=== PATIENT | female | born 1990 | race Caucasian/White ===

== ENCOUNTER 2020-08-14 22:06 | Inpatient (IN) | payer BC ==
[2020-08-14] MEDS ORDERED: Morphine 4 MG/ML VIAL ONE (22:28)
[2020-08-14] MEDS ORDERED: Ondansetron PF 4 MG/2 ML Vial ONE (22:29)
[2020-08-14 22:44] LABS: #Eosinphils 0.1 10x3/uL (0.0-0.5); #Monocytes 1.2 10x3/uL (0.0-1.1); #Neutrophils 10.8 10x3/uL (1.5-8.4); %Basophils 0.3 % (0.0-2.0); %Eosinophils 0.6 % (0.0-6.0); %Lymphocytes 15.6 % (18.0-47.0); %Monocytes 8.1 % (0.0-10.0); %Neutrophils 74.9 % (40.0-75.0); Hemoglobin 12.5 g/dL (12.0-15.5); Mean Corpuscular HGB CONC 33.2 g/dL (32.0-36.0); Mean Corpuscular Hemoglobin 28.2 pg (27.0-33.0); Mean Corpuscular Volume 84.9 fl (81.6-98.3); Mean Platelet Volume 8.8 fl (7.4-10.4); Platelet Count 417 10x3/uL (150-450); RBC Distribution Width 12.3 % (11.5-14.5); Red Blood Cell (RBC) Count 4.43 10x6/uL (3.90-5.03); White Blood Cell (WBC) Count 14.4 10x3/uL (3.5-10.5)
[2020-08-14 22:49] LABS: BHCG - Serum Negative (NEGATIVE); Pregs Control Background? CLEAR/WHITE (CLR/WHITE); Pregs Control Bar Appear? YES (CONTROL BAR)
[2020-08-14 22:56] LABS: ALT (SGPT) 17 U/L (8-55); AST (SGOT) 12 U/L (5-34); Albumin 3.9 g/dL (3.5-5.0); Alkaline Phosphatase 103 U/L (40-110); Anion Gap 14 mmol/L (10-20); BUN (Urea Nitrogen) 11 mg/dL (7.0-18.7); Bilirubin, Total 0.5 mg/dL (0.2-1.2); Calc. Creatinine Clearance 0 mL/min (70-130); Calcium 8.9 mg/dL (7.8-10.44); Carbon Dioxide 23 mmol/L (22-29); Chloride 104 mmol/L (98-107); Globulin 4.5 g/dL (2.4-3.5); Glucose 114 mg/dL (70-105); Lipase 42 U/L (8-78); Potassium 3.8 mmol/L (3.5-5.1); Protein, Total 8.4 g/dL (6.0-8.3); Sodium 137 mmol/L (136-145)
[2020-08-15] MEDS ORDERED: Piperacillin/Tazobactam 4.5 GM VIAL ONE (00:12)
[2020-08-15 01:43] VITALS: BMI 34.3
[2020-08-15] MEDS ORDERED: Ondansetron ODT 4 MG TAB SL PRN (02:15)
[2020-08-15] MEDS ORDERED: Ondansetron PF 4 MG/2 ML Vial IVP PRN ×2 (02:15→15:23)
[2020-08-15] MEDS: Lactated Ringer's 1,000 ML IV SCH ×3 (02:33→17:52)
[2020-08-15] MEDS: Piperacillin/Tazobactam 3.375 GM in Sodium Chloride 0.9% 100 ML IVPB SCH ×3 (04:57→21:21)
[2020-08-15] MEDS: Morphine 4 MG/ML VIAL SLOW IVP SCH ×2 (05:29→10:41)
[2020-08-15 08:41] LABS: SARS-CoV-2 PCR by NAA Not Detected (NotDetected)
[2020-08-15] MEDS ORDERED: Midazolam HCl 2 mg/2 ml Vial ONE ×2 (12:54→13:18)
[2020-08-15] MEDS ORDERED: Bupivacaine PF 0.5% 30 ML VIAL ONE (12:56)
[2020-08-15] MEDS ORDERED: PROPOFOL 20 ML ONE (13:18)
[2020-08-15] MEDS ORDERED: Fentanyl 100 MCG/2 ML VIAL ONE (13:18)
[2020-08-15] MEDS ORDERED: Ketorolac Tromethamine 30 MG/ML VIAL ONE (13:18)
[2020-08-15] MEDS ORDERED: Rocuronium Bromide 10 MG/ML (10ML VIAL) ONE (13:21)
[2020-08-15] MEDS ORDERED: Dexamethasone 4 mg/ml Vial ONE (13:21)
[2020-08-15] MEDS ORDERED: Glycopyrrolate 0.2 MG/ML 5 ML SYRINGE ONE (13:21)
[2020-08-15] MEDS ORDERED: Ondansetron PF 4 MG/2 ML Vial ONE (13:21)
[2020-08-15] MEDS ORDERED: Lidocaine 1% PF 5 ML VIAL ONE (13:21)
[2020-08-15] MEDS ORDERED: Morphine 1 ML ONE (15:14)
[2020-08-15] MEDS ORDERED: Calcium Carbonate 500 MG ChewTAB PO PRN (15:23)
[2020-08-15] MEDS ORDERED: hydrALAZINE 20 MG/ML VIAL SLOW IVP PRN (15:23)
[2020-08-15] MEDS ORDERED: Acetaminophen 325 MG TAB PO PRN (15:23)
[2020-08-15] MEDS ORDERED: Mag-Al Plus 1200 MG/1200 MG/120 MG/30 ML UDCUP PO PRN (15:29)
[2020-08-15] MEDS ORDERED: Promethazine HCl 25 MG/ML VIAL ONE (15:45)
[2020-08-15] MEDS ORDERED: Morphine 2 MG/ML VIAL ONE (15:59)
[2020-08-15] MEDS ORDERED: Piperacillin/Tazobactam 3.375 GM in Sodium Chloride 0.9% 100 ML IVPB SCH ×2 (16:00→17:00)
[2020-08-15] MEDS ORDERED: HYDROcodone/Acetaminophen 5/325 mg Tablet PO PRN ×2 (17:44→17:45)
[2020-08-15] MEDS ORDERED: Morphine 2 MG/ML VIAL SLOW IVP PRN (17:46)
[2020-08-15] MEDS ORDERED: Morphine 4 MG/ML VIAL SLOW IVP PRN (17:46)
[2020-08-15] MEDS: Ketorolac Tromethamine 30 MG/ML VIAL IVP SCH (17:51)
[2020-08-15] MEDS: Famotidine/PF 20 mg/2ml Vial SLOW IVP SCH (21:21)
[2020-08-16] MEDS: Ketorolac Tromethamine 30 MG/ML VIAL IVP SCH ×3 (01:18→12:47)
[2020-08-16] MEDS: Lactated Ringer's 1,000 ML IV SCH ×2 (01:22→09:29)
[2020-08-16 04:58] LABS: #Monocytes 0.7 10x3/uL (0.0-1.1); %Basophils 0.1 % (0.0-2.0); %Lymphocytes 12.6 % (18.0-47.0); %Monocytes 6.3 % (0.0-10.0); %Neutrophils 80.4 % (40.0-75.0); Hemoglobin 11.4 g/dL (12.0-15.5); Mean Corpuscular Hemoglobin 28.2 pg (27.0-33.0); Mean Corpuscular Volume 85.4 fl (81.6-98.3); Mean Platelet Volume 8.8 fl (7.4-10.4); Platelet Count 397 10x3/uL (150-450); RBC Distribution Width 12.1 % (11.5-14.5); Red Blood Cell (RBC) Count 4.04 10x6/uL (3.90-5.03); White Blood Cell (WBC) Count 11.2 10x3/uL (3.5-10.5)
[2020-08-16] MEDS: Piperacillin/Tazobactam 3.375 GM in Sodium Chloride 0.9% 100 ML IVPB SCH (05:48)
[2020-08-16] MEDS: Famotidine/PF 20 mg/2ml Vial SLOW IVP SCH (09:29)
[2020-08-16 12:22] VITALS: BP 116/74; TEMP 97.8
== END 2020-08-16 13:40 | disposition home or self-care (01) | DRG 419 ==
LOC: CSHERS 22:06 → CSHTELE 08-15 01:36 → OBSVTOIN 08-15 15:24
PROVIDERS: ADMIT Surgery; ATTEND Surgery
PROC: 0FT44ZZ Resection of Gallbladder, Percutaneous Endoscopic Approach (ICD-10-PCS; principal; 2020-08-15)
DX: K81.0 Acute cholecystitis (principal); Z86.16 Personal history of COVID-19
CPT/HCPCS: 36415; 76705; 80053; 83690; 84703; 85025; 87635; 88304; 96365; 96375; G0378; J0690; J1100; J1885; J2250; J2270; J2405; J2543; J2550; J2704; J3010; J3490; J7120; S0020; S0028; U0003; U0005

== ENCOUNTER 2020-08-28 22:10 | Inpatient (IN) | payer BC ==
[2020-08-29] MEDS ORDERED: HYDROcodone/Acetaminophen 10/325 mg Tablet PO PRN (01:28)
[2020-08-29] MEDS ORDERED: Ondansetron ODT 4 MG TAB PO PRN (01:28)
[2020-08-29] MEDS ORDERED: Ondansetron PF 4 MG/2 ML Vial IVP PRN (01:28)
[2020-08-29] MEDS ORDERED: Milk Of Magnesia 30 ML UDCUP PO PRN (01:28)
[2020-08-29 01:31] VITALS: BMI 34.7
[2020-08-29] MEDS: NS 0.9% w/ 20 MEQ KCL 1,000 ML/1,000 ML BAG IV SCH ×3 (03:39→19:17)
[2020-08-29 04:58] LABS: #Eosinphils 0.1 10x3/uL (0.0-0.5); #Monocytes 0.8 10x3/uL (0.0-1.1); #Neutrophils 8.2 10x3/uL (1.5-8.4); %Basophils 0.2 % (0.0-2.0); %Eosinophils 0.7 % (0.0-6.0); %Lymphocytes 17.6 % (18.0-47.0); %Monocytes 7.3 % (0.0-10.0); %Neutrophils 73.8 % (40.0-75.0); Hemoglobin 10.2 g/dL (12.0-15.5); Mean Corpuscular HGB CONC 31.8 g/dL (32.0-36.0); Mean Corpuscular Hemoglobin 27.3 pg (27.0-33.0); Mean Corpuscular Volume 85.8 fl (81.6-98.3); Mean Platelet Volume 8.6 fl (7.4-10.4); Platelet Count 386 10x3/uL (150-450); RBC Distribution Width 12.7 % (11.5-14.5); Red Blood Cell (RBC) Count 3.74 10x6/uL (3.90-5.03); White Blood Cell (WBC) Count 11.1 10x3/uL (3.5-10.5)
[2020-08-29] MEDS: HYDROcodone/Acetaminophen 5/325 mg Tablet PO PRN ×2 (04:58→17:41)
[2020-08-29 05:19] LABS: Anion Gap 10 mmol/L (10-20); BUN (Urea Nitrogen) 6 mg/dL (7.0-18.7); Calc. Creatinine Clearance 170 mL/min (70-130); Carbon Dioxide 26 mmol/L (22-29); Chloride 109 mmol/L (98-107); Glucose 112 mg/dL (70-105); Magnesium 1.9 mg/dL (1.6-2.6); Potassium 3.5 mmol/L (3.5-5.1); Sodium 141 mmol/L (136-145)
[2020-08-29 05:36] LABS: Syphilis Antibody Nonreactive (Nonreactive); Syphilis Antibody Index 0.05 S/CO (<1.00 Non-Reactive)
[2020-08-29] MEDS: Cefepime 2 GM in Sodium Chloride 0.9% 100 ML IVPB SCH ×2 (06:05→19:17)
[2020-08-29] MEDS ORDERED: NS 0.9% w/ 20 MEQ KCL 1,000 ML/1,000 ML BAG IV SCH (07:15)
[2020-08-29] MEDS ORDERED: Cefepime 2 GM in Sodium Chloride 0.9% 100 ML IVPB SCH (07:15)
[2020-08-29] MEDS ORDERED: VANCOMYCIN 1.25 GM/250 ML BAG IVPB SCH (08:00)
[2020-08-29] MEDS ORDERED: VANCOMYCIN 1.25 GM/250 ML BAG 1.25 GM in Premix Bag 1 BAG IVPB SCH (08:00)
[2020-08-29] MEDS ORDERED: Vancomycin HCl 1.25 GM in Sodium Chloride 0.9% 250 ML 300 ML IVPB SCH (08:00)
[2020-08-29] MEDS ORDERED: diphenhydrAMINE 25 MG in Sodium Chloride 0.9% 50 ML IVPB SCH ×3 (08:00→22:00)
[2020-08-29] MEDS: Enoxaparin Sodium 40 MG/0.4 ML SYRINGE SC SCH (08:56)
[2020-08-29] MEDS: VANCOMYCIN 1.25 GM/250 ML BAG 1.25 GM in Premix Bag 1 BAG IVPB SCH ×2 (10:45→21:26)
[2020-08-29 11:52] LABS: HBSAB Concentration 63.88 mIU/mL; Hep B Surf AB Reactive (NonReactive)
[2020-08-29 12:09] LABS: Hemoglobin A1c 5.6 % (4.0-6.0)
[2020-08-29 13:56] LABS: SARS-CoV-2 PCR by NAA Not Detected (NotDetected)
[2020-08-29] MEDS ORDERED: diphenhydrAMINE 50 MG/ML VIAL ONE (20:01)
[2020-08-29] MEDS: Acetaminophen 325 MG TAB PO PRN (20:25)
[2020-08-29] MEDS: diphenhydrAMINE 25 MG in Sodium Chloride 0.9% 50 ML IVPB SCH ×3 (21:23→21:25)
[2020-08-30] MEDS: Cefepime 2 GM in Sodium Chloride 0.9% 100 ML IVPB SCH ×2 (06:16→18:42)
[2020-08-30] MEDS: NS 0.9% w/ 20 MEQ KCL 1,000 ML/1,000 ML BAG IV SCH ×2 (06:51→11:02)
[2020-08-30 07:59] LABS: Vancomycin, Trough 8.9 ug/mL
[2020-08-30] MEDS ORDERED: Vancomycin 1.5 GRAM/300 ML BAG 1.5 GM in Premix Bag 1 BAG IVPB SCH (08:30)
[2020-08-30 08:31] LABS: HIV (1/2) Antibody/Antigen Non-Reactive (NonReactive); HIV 1/2 INDEX 0.11 S/CO (<1.00)
[2020-08-30] MEDS: Enoxaparin Sodium 40 MG/0.4 ML SYRINGE SC SCH (11:02)
[2020-08-30] MEDS: diphenhydrAMINE 25 MG, Admixture Fee 1 EACH in Sodium Chloride 0.9% 50 ML IVPB SCH ×2 (11:12→22:31)
[2020-08-30] MEDS: Vancomycin 1.5 GRAM/300 ML BAG 1.5 GM in Premix Bag 1 BAG IVPB SCH ×2 (11:43→22:33)
[2020-08-30] MEDS: diphenhydrAMINE 25 MG in Sodium Chloride 0.9% 50 ML IVPB SCH (12:01)
[2020-08-30] MEDS: Acetaminophen 325 MG TAB PO PRN (22:37)
[2020-08-31] MEDS: NS 0.9% w/ 20 MEQ KCL 1,000 ML/1,000 ML BAG IV SCH ×4 (01:17→18:48)
[2020-08-31 04:43] LABS: #Eosinphils 0.1 10x3/uL (0.0-0.5); #Monocytes 0.7 10x3/uL (0.0-1.1); #Neutrophils 5.7 10x3/uL (1.5-8.4); %Basophils 0.2 % (0.0-2.0); %Lymphocytes 27.6 % (18.0-47.0); %Neutrophils 62.9 % (40.0-75.0); Hemoglobin 10.6 g/dL (12.0-15.5); Mean Corpuscular HGB CONC 31.5 g/dL (32.0-36.0); Mean Corpuscular Hemoglobin 27.2 pg (27.0-33.0); Mean Corpuscular Volume 86.4 fl (81.6-98.3); Mean Platelet Volume 8.6 fl (7.4-10.4); Platelet Count 408 10x3/uL (150-450); RBC Distribution Width 12.7 % (11.5-14.5); Red Blood Cell (RBC) Count 3.89 10x6/uL (3.90-5.03)
[2020-08-31 04:54] LABS: ALT (SGPT) 25 U/L (8-55); AST (SGOT) 12 U/L (5-34); Albumin 3.2 g/dL (3.5-5.0); Alkaline Phosphatase 95 U/L (40-110); Anion Gap 13 mmol/L (10-20); BUN (Urea Nitrogen) 7 mg/dL (7.0-18.7); Bilirubin, Total 0.3 mg/dL (0.2-1.2); Calc. Creatinine Clearance 165 mL/min (70-130); Calcium 8.4 mg/dL (7.8-10.44); Carbon Dioxide 23 mmol/L (22-29); Chloride 109 mmol/L (98-107); Globulin 3.9 g/dL (2.4-3.5); Glucose 84 mg/dL (70-105); Potassium 3.8 mmol/L (3.5-5.1); Protein, Total 7.1 g/dL (6.0-8.3); Sodium 141 mmol/L (136-145)
[2020-08-31] MEDS: Cefepime 2 GM in Sodium Chloride 0.9% 100 ML IVPB SCH ×2 (06:57→18:44)
[2020-08-31] MEDS: Enoxaparin Sodium 40 MG/0.4 ML SYRINGE SC SCH (09:23)
[2020-08-31] MEDS: diphenhydrAMINE 25 MG, Admixture Fee 1 EACH in Sodium Chloride 0.9% 50 ML IVPB SCH ×2 (11:20→23:34)
[2020-08-31] MEDS: Vancomycin 1.5 GRAM/300 ML BAG 1.5 GM in Premix Bag 1 BAG IVPB SCH ×2 (11:52→23:35)
[2020-08-31] MEDS: Acetaminophen 325 MG TAB PO PRN (18:43)
[2020-08-31 22:48] LABS: Vancomycin, Trough 9.7 ug/mL
[2020-09-01] MEDS: NS 0.9% w/ 20 MEQ KCL 1,000 ML/1,000 ML BAG IV SCH ×2 (04:16→10:37)
[2020-09-01 05:34] LABS: BUN (Urea Nitrogen) 7 mg/dL (7.0-18.7); Calc. Creatinine Clearance 163 mL/min (70-130)
[2020-09-01] MEDS: Cefepime 2 GM in Sodium Chloride 0.9% 100 ML IVPB SCH (06:56)
[2020-09-01] MEDS ORDERED: diphenhydrAMINE 25 MG, Admixture Fee 1 EACH in Sodium Chloride 0.9% 50 ML IVPB SCH ×2 (08:15→15:30)
[2020-09-01] MEDS: Enoxaparin Sodium 40 MG/0.4 ML SYRINGE SC SCH (08:54)
[2020-09-01] MEDS: Vancomycin 1.5 GRAM/300 ML BAG 1.5 GM in Premix Bag 1 BAG IVPB SCH (09:46)
[2020-09-01] MEDS ORDERED: Cephalexin 500 MG CAP PO SCH ×2 (10:00→21:00)
[2020-09-01 14:25] VITALS: BP 101/67; TEMP 98.5
[2020-09-06 11:13] LABS: ANA Symphony (Qualitative) Negative (Negative); ANA Symphony (Quantitative) 0.2 Ratio (< 0.7 Negative); dsDNA IgG Antibody 0.9 IU/mL (<10 Negative)
== END 2020-09-01 16:56 | disposition home or self-care (01) | DRG 603 ==
LOC: CSHERS 22:10 → CSHTELE 08-29 01:26
PROVIDERS: ADMIT Family Medicine; ATTEND Internal Medicine
DX: L03.031 Cellulitis of right toe (principal); R73.9 Hyperglycemia, unspecified; E66.9 Obesity, unspecified; Z20.822 Contact with and (suspected) exposure to COVID-19; Z86.16 Personal history of COVID-19; Z90.49 Acquired absence of other specified parts of digestive tract; Z83.3 Family history of diabetes mellitus; Z83.438 Family history of other disorder of lipoprotein metabolism and other lipidemia; Z82.49 Family history of ischemic heart disease and other diseases of the circulatory system; Z68.34 Body mass index [BMI] 34.0-34.9, adult
CPT/HCPCS: 36415; 80048; 80053; 80202; 82565; 83036; 83735; 84520; 85025; 85652; 86038; 86140; 86225; 86706; 86780; 87389; 87635; 93970; J0692; J1200; J1650; J3370; J3480; J3490; U0003; U0005

== ENCOUNTER 2022-01-22 14:04 | Outpatient (CLI) | payer OTHER | END 2022-01-22 14:05 | disposition home or self-care (01) | LOC: CSHULT 14:04 | PROVIDERS: ATTEND Family Medicine | DX: O09.892 Supervision of other high risk pregnancies, second trimester (principal); Z3A.25 25 weeks gestation of pregnancy | CPT/HCPCS: 76805 ==

== ENCOUNTER 2022-03-31 23:37 | Day surgery (SDC) | payer OTHER ==
[2022-04-01 00:20] VITALS: BMI 42.0
[2022-04-01] MEDS ORDERED: hydrALAZINE 20 MG/ML VIAL SLOW IVP PRN (00:50)
== END 2022-04-01 00:52 | disposition home or self-care (01) ==
LOC: CSHLD/OP 23:37
PROVIDERS: ATTEND Family Medicine
DX: O26.893 Other specified pregnancy related conditions, third trimester (principal); R10.9 Unspecified abdominal pain; Z3A.35 35 weeks gestation of pregnancy; Z90.49 Acquired absence of other specified parts of digestive tract; W18.2XXA Fall in (into) shower or empty bathtub, initial encounter
CPT/HCPCS: 99281

== ENCOUNTER 2022-04-23 18:15 | Day surgery (SDC) | payer OTHER, SELFPAY ==
[2022-04-23 19:10] VITALS: BMI 43.3
[2022-04-23 21:25] LABS: SARS-CoV-2 NAA Rapid Test Not Detected (NotDetected)
== END 2022-04-23 21:57 | disposition home or self-care (01) ==
LOC: CSHLD/OP 18:15
PROVIDERS: ATTEND Family Medicine
DX: O98.513 Other viral diseases complicating pregnancy, third trimester (principal); J10.1 Influenza due to other identified influenza virus with other respiratory manifestations; Z3A.38 38 weeks gestation of pregnancy; Z79.82 Long term (current) use of aspirin; Z90.49 Acquired absence of other specified parts of digestive tract
CPT/HCPCS: 87081; 87430; 99283

== ENCOUNTER 2022-04-28 19:00 | Inpatient (IN) | payer MEDICAID, OTHER ==
[2022-04-29] MEDS ORDERED: Bupivacaine 0.25% HCL 30 ML VIAL ONE (07:00)
[2022-04-29] MEDS ORDERED: Methylergonovine 0.2 MG/ML VIAL IM PRN (17:25)
[2022-04-29] MEDS ORDERED: Ondansetron PF 4 MG/2 ML Vial IVP PRN (17:25)
[2022-04-29] MEDS ORDERED: Butorphanol Tartrate 1 MG/ML VIAL SLOW IVP PRN (17:25)
[2022-04-29] MEDS ORDERED: Penicillin G Potassium 5 MILL.UNITS in Sodium Chloride 0.9% 100 ML IVPB SCH (17:25)
[2022-04-29] MEDS ORDERED: Ibuprofen 800 MG TAB PO PRN (17:25)
[2022-04-29] MEDS ORDERED: Diphenoxylate HCl/Atropine Tablet PO PRN (17:25)
[2022-04-29] MEDS ORDERED: Lidocaine 1% (PF) 30 ML VIAL SC PRN (17:25)
[2022-04-29] MEDS ORDERED: Carboprost 250 MCG/ML AMP IM PRN (17:25)
[2022-04-29] MEDS ORDERED: Misoprostol 200 MCG TAB PR PRN (17:25)
[2022-04-29] MEDS ORDERED: NS w/ Oxytocin 30 units 500 ML IV SCH ×2 (17:25)
[2022-04-29] MEDS ORDERED: hydrALAZINE 20 MG/ML VIAL SLOW IVP PRN (17:25)
[2022-04-29] MEDS ORDERED: Acetaminophen 500 MG TAB PO PRN (17:25)
[2022-04-29] MEDS ORDERED: HYDROcodone/Acetaminophen 5/325 mg Tablet PO PRN (17:25)
[2022-04-29] MEDS ORDERED: Promethazine HCl 25 MG/ML VIAL IM PRN (17:25)
[2022-04-29 17:28] VITALS: BMI 43.3
[2022-04-29] MEDS ORDERED: NS w/ Oxytocin 30 units 500 ML ONE (17:34)
[2022-04-29] MEDS ORDERED: Penicillin G Potassium 5 MILL.UNITS VIAL ONE (17:34)
[2022-04-29] MEDS ORDERED: Sodium Chloride 0.9% 100 ML ONE (17:34)
[2022-04-29 17:38] LABS: Mean Corpuscular HGB CONC 34.2 g/dL (32.0-36.0); Mean Corpuscular Hemoglobin 28.8 pg (27.0-33.0); Mean Corpuscular Volume 84.4 fl (81.6-98.3); Mean Platelet Volume 9.6 fl (7.4-10.4); Platelet Count 230 10x3/uL (150-450); Red Blood Cell (RBC) Count 4.16 10x6/uL (3.90-5.03); White Blood Cell (WBC) Count 8.8 10x3/uL (3.5-10.5)
[2022-04-29 18:12] LABS: HBSAg Index 0.24 S/CO (0-0.99); Hep B Surf Ag Non-Reactive S/CO (NonReactive)
[2022-04-29 18:13] LABS: Syphilis Antibody Nonreactive (Nonreactive); Syphilis Antibody Index 0.05 S/CO (<1.00 Non-Reactive)
[2022-04-29] MEDS: Penicillin G 2.5 MILL.units 2.5 MILL.UNITS in Premix Bag 1 BAG IVPB SCH (21:18)
[2022-04-30] MEDS: Penicillin G 2.5 MILL.units 2.5 MILL.UNITS in Premix Bag 1 BAG IVPB SCH ×3 (01:32→10:16)
[2022-04-30] MEDS ORDERED: Fentanyl 2 mcg/Bup 0.1% Cadd 100 ML ONE (04:10)
[2022-04-30] MEDS: Lactated Ringer's 1,000 ML IV SCH ×3 (10:16→10:33)
[2022-04-30] MEDS: Misoprostol 100 MCG TAB PO SCH (10:33)
[2022-04-30] MEDS ORDERED: diphenhydrAMINE 50 MG/ML VIAL IVP PRN (11:29)
[2022-04-30] MEDS ORDERED: Ondansetron PF 4 MG/2 ML Vial IVP PRN ×2 (11:29→15:52)
[2022-04-30] MEDS ORDERED: Moisturizing Cream (Eucerin) 113 GM JAR TOP PRN (11:29)
[2022-04-30] MEDS ORDERED: Acetaminophen 325 MG TAB PO PRN (11:29)
[2022-04-30] MEDS ORDERED: Promethazine HCl 25 MG/ML VIAL IM PRN ×2 (11:29→15:52)
[2022-04-30] MEDS ORDERED: Naloxone HCl 0.4 mg/ml Vial IVP PRN ×2 (11:29)
[2022-04-30] MEDS ORDERED: ePHEDrine Sulfate 50 MG/10 ML VIAL SLOW IVP PRN (11:29)
[2022-04-30] MEDS ORDERED: Fentanyl 2 mcg/Bupivacaine 0.1% Cassette 100 ML EPIDURAL SCH (11:30)
[2022-04-30] MEDS ORDERED: Communication Order-Pharmacy FS SCH (11:30)
[2022-04-30] MEDS ORDERED: Lactated Ringer's 500 ML IV PRN (11:46)
[2022-04-30] MEDS ORDERED: HYDROcodone/Acetaminophen 5/325 mg Tablet PO PRN (15:52)
[2022-04-30] MEDS ORDERED: diphenhydrAMINE 25 MG CAP PO PRN (15:52)
[2022-04-30] MEDS ORDERED: Bisacodyl 10 MG SUPP PR PRN (15:52)
[2022-04-30] MEDS ORDERED: Boostrix 0.5 ML (Tdap) VIAL (>/=7 yrs of age) IM ONE (15:52)
[2022-04-30] MEDS ORDERED: Benzocaine-Menthol 82.5 ML CAN TOP PRN (15:52)
[2022-04-30] MEDS ORDERED: hydrALAZINE 20 MG/ML VIAL SLOW IVP PRN (15:52)
[2022-04-30] MEDS ORDERED: Lanolin Ointment 7 GM TUBE TOP PRN (15:52)
[2022-04-30] MEDS ORDERED: Milk Of Magnesia 30 ML UDCUP PO PRN (15:52)
[2022-04-30] MEDS: Ferrous Sulfate 325 MG TAB PO SCH (16:46)
[2022-04-30] MEDS: Docusate 100 MG CAP PO SCH (22:20)
[2022-04-30] MEDS: Ibuprofen 800 MG TAB PO SCH (22:20)
[2022-05-01] MEDS: Ibuprofen 800 MG TAB PO SCH ×2 (06:17→16:27)
[2022-05-01] MEDS: Ferrous Sulfate 325 MG TAB PO SCH (07:46)
[2022-05-01] MEDS: Docusate 100 MG CAP PO SCH (08:45)
[2022-05-01] MEDS: HYDROcodone/Acetaminophen 5/325 mg Tablet PO PRN ×2 (08:45→15:33)
[2022-05-01] MEDS ORDERED: Prenatal Vitamin 1 TAB PO SCH (09:00)
[2022-05-01 11:49] VITALS: BP 108/62; TEMP 97.9
== END 2022-05-01 16:25 | disposition home or self-care (01) | DRG 807 ==
LOC: CSHLD 04-29 16:08 → CSHPP 04-30 15:48
PROVIDERS: ADMIT Family Medicine; ATTEND Family Medicine
PROC: 10E0XZZ Delivery of Products of Conception, External Approach (ICD-10-PCS; principal; 2022-04-30)
PROC: 10907ZC Drainage of Amniotic Fluid, Therapeutic from Products of Conception, Via Natural or Artificial Opening (ICD-10-PCS; 2022-04-30)
PROC: 3E0P7VZ Introduction of Hormone into Female Reproductive, Via Natural or Artificial Opening (ICD-10-PCS; 2022-04-30)
PROC: 0HQ9XZZ Repair Perineum Skin, External Approach (ICD-10-PCS; 2022-04-30)
DX: O99.824 Streptococcus B carrier state complicating childbirth (principal); Z37.0 Single live birth; Z88.1 Allergy status to other antibiotic agents; Z88.8 Allergy status to other drugs, medicaments and biological substances; Z3A.39 39 weeks gestation of pregnancy; Z90.49 Acquired absence of other specified parts of digestive tract; E66.9 Obesity, unspecified; O99.214 Obesity complicating childbirth; O70.0 First degree perineal laceration during delivery
CPT/HCPCS: 51702; 85027; 86780; 86850; 86900; 86901; 87340; J2540; J3490; J7120; S0020

== ENCOUNTER 2023-12-20 10:25 | Outpatient (CLI) | payer MEDICAID, OTHER | END 2023-12-20 10:26 | disposition home or self-care (01) | LOC: CSHULT 10:25 | PROVIDERS: ATTEND Nurse Practitioner Women's Health | DX: O09.891 Supervision of other high risk pregnancies, first trimester (principal); Z3A.22 22 weeks gestation of pregnancy | CPT/HCPCS: 76805 ==

== ENCOUNTER 2024-04-04 10:03 | Inpatient (IN) | payer OTHER ==
[2024-04-04] MEDS ORDERED: Promethazine HCl 25 MG/ML VIAL IM PRN ×3 (10:36→21:17)
[2024-04-04] MEDS ORDERED: fentaNYL 50 mcg/mL 1 mL Vial SLOW IVP PRN (10:36)
[2024-04-04] MEDS ORDERED: HYDROcodone/Acetaminophen 5/325 mg Tablet PO PRN (10:36)
[2024-04-04] MEDS ORDERED: hydrALAZINE 20 MG/ML VIAL SLOW IVP PRN ×2 (10:36→21:17)
[2024-04-04] MEDS ORDERED: Misoprostol 200 MCG TAB PR PRN (10:36)
[2024-04-04] MEDS ORDERED: Carboprost 250 MCG/ML AMP IM PRN (10:36)
[2024-04-04] MEDS ORDERED: Acetaminophen 500 MG TAB PO PRN (10:36)
[2024-04-04] MEDS ORDERED: Diphenoxylate HCl/Atropine Tablet PO PRN (10:36)
[2024-04-04] MEDS ORDERED: Ondansetron PF 4 MG/2 ML Vial IVP PRN ×3 (10:36→21:17)
[2024-04-04] MEDS ORDERED: Lidocaine 1% (PF) 30 ML VIAL SC PRN (10:36)
[2024-04-04] MEDS ORDERED: Oxytocin 30 units/NS 500 ML 500 ML IV SCH (10:45)
[2024-04-04] MEDS ORDERED: Lactated Ringer's 1,000 ML IV SCH (10:45)
[2024-04-04 10:47] VITALS: BMI 41.7
[2024-04-04] MEDS: Penicillin G Potassium 5 MILL.UNITS in Sodium Chloride 0.9% 100 ML IVPB SCH (11:11)
[2024-04-04 11:30] LABS: Hematocrit 35.9 % (34.9-44.5); Hemoglobin 12.1 g/dL (12.0-15.5); Mean Corpuscular HGB CONC 33.7 g/dL (32.0-36.0); Mean Corpuscular Hemoglobin 29.8 pg (27.0-33.0); Mean Corpuscular Volume 88.4 fL (81.6-98.3); Mean Platelet Volume 10.4 fL (7.4-10.4); Platelet Count 211 10x3/uL (150-450); RBC Distribution Width 15.7 % (11.5-14.5); Red Blood Cell (RBC) Count 4.06 10x6/uL (3.90-5.03); White Blood Cell (WBC) Count 9.4 10x3/uL (3.5-10.5)
[2024-04-04 12:00] LABS: HBsAg Index 0.37 S/CO (0-0.99); Hep B Surf Ag - L&D Non-Reactive S/CO (NonReactive)
[2024-04-04 12:01] LABS: Syphilis Antibody Nonreactive (Nonreactive)
[2024-04-04] MEDS: Oxytocin 30 units/NS 500 ML 500 ML IV SCH ×2 (12:31→18:32)
[2024-04-04] MEDS: Penicillin G 2.5 MILL.units 2.5 MILL.UNITS in Premix 1 BAG IVPB SCH (15:03)
[2024-04-04] MEDS: fentaNYL/Ropivacaine Epidural 100 ML ONE (16:23)
[2024-04-04] MEDS ORDERED: Moisturizing Cream (Eucerin) 113 GM JAR TOP PRN (16:36)
[2024-04-04] MEDS ORDERED: Acetaminophen 325 MG TAB PO PRN (16:36)
[2024-04-04] MEDS ORDERED: Lactated Ringer's 500 ML IV PRN (16:36)
[2024-04-04] MEDS ORDERED: Naloxone HCl 0.4 mg/ml Vial IVP PRN ×2 (16:36)
[2024-04-04] MEDS ORDERED: diphenhydrAMINE 50 MG/ML VIAL IVP PRN (16:36)
[2024-04-04] MEDS ORDERED: ePHEDrine Sulfate 50 MG/10 ML VIAL SLOW IVP PRN (16:36)
[2024-04-04] MEDS ORDERED: Communication Order-Pharmacy FS SCH (16:45)
[2024-04-04] MEDS ORDERED: fentaNYL 2 mcg/Ropivacaine 0.2% Epidural 100 ML CADD EPIDURAL SCH (16:45)
[2024-04-04] MEDS: Methylergonovine 0.2 MG/ML VIAL IM PRN (18:20)
[2024-04-04] MEDS: Tranexamic Acid 1,000 MG/10 ML VIAL IVP PRN (18:20)
[2024-04-04] MEDS ORDERED: Azithromycin 1,000 MG, Admixture Fee 1 EACH in Sodium Chloride 0.9% 500 ML IVPB SCH (19:30)
[2024-04-04] MEDS: metroNIDAZOLE 500 MG in Premix 1 BAG IVPB SCH (19:39)
[2024-04-04] MEDS: Ibuprofen 800 MG TAB PO PRN (21:02)
[2024-04-04] MEDS ORDERED: Bisacodyl 10 MG SUPP PR PRN (21:17)
[2024-04-04] MEDS ORDERED: Milk Of Magnesia 30 ML UDCUP PO PRN (21:17)
[2024-04-04] MEDS ORDERED: Lanolin Ointment 7 GM TUBE TOP PRN (21:17)
[2024-04-04] MEDS ORDERED: diphenhydrAMINE 25 MG CAP PO PRN (21:17)
[2024-04-04] MEDS: CEFAZOLIN 2 GM in Sodium Chloride 0.9% 100 ML IVPB SCH (22:16)
[2024-04-05] MEDS: Azithromycin 1,000 MG, Admixture Fee 1 EACH in Sodium Chloride 0.9% 500 ML IVPB SCH (00:07)
[2024-04-05] MEDS: CEFAZOLIN 2 GM in Sodium Chloride 0.9% 100 ML IVPB SCH (05:02)
[2024-04-05] MEDS: Docusate 100 MG CAP PO SCH ×2 (05:02→09:34)
[2024-04-05] MEDS: Ibuprofen 800 MG TAB PO SCH (05:06)
[2024-04-05] MEDS: Tranexamic Acid 1,000 MG/10 ML VIAL ONE (07:14)
[2024-04-05] MEDS: Boostrix 0.5 ML (Tdap) VIAL (>/=7 yrs of age) IM ONE (07:15)
[2024-04-05] MEDS: Ferrous Sulfate 325 MG TAB PO SCH (08:34)
[2024-04-05] MEDS: Prenatal Vitamin 1 TAB PO SCH (09:34)
[2024-04-05] MEDS: HYDROcodone/Acetaminophen 5/325 mg Tablet PO PRN (16:22)
[2024-04-06 08:08] VITALS: BP 116/71; TEMP 97.6
== END 2024-04-06 10:15 | disposition home or self-care (01) | DRG 807 ==
LOC: CSHLD 10:03 → CSHPP 21:10
PROVIDERS: ADMIT Family Medicine; ATTEND Family Medicine
PROC: 10E0XZZ Delivery of Products of Conception, External Approach (ICD-10-PCS; principal; 2024-04-04)
PROC: 10907ZC Drainage of Amniotic Fluid, Therapeutic from Products of Conception, Via Natural or Artificial Opening (ICD-10-PCS; 2024-04-04)
DX: O99.214 Obesity complicating childbirth (principal); Z37.0 Single live birth; Z3A.38 38 weeks gestation of pregnancy; E66.9 Obesity, unspecified; Z88.1 Allergy status to other antibiotic agents; Z88.8 Allergy status to other drugs, medicaments and biological substances; Z79.82 Long term (current) use of aspirin; O99.824 Streptococcus B carrier state complicating childbirth
CPT/HCPCS: 51702; 85027; 86780; 86850; 86900; 86901; 87340; J0456; J2210; J2540; J2590; J7030

== ENCOUNTER 2025-02-13 17:05 | Emergency (ER) | payer MEDICAID, OTHER ==
[~2025-02-13 17:05] MED LIST: Iopamidol 300 61% 100 ML VIAL FS ONE
[2025-02-13 17:41] LABS: #Basophils Less than 0.03 10x3/uL (0.0-0.2); #Eosinophils 0.03 10x3/uL (0.0-0.5); #Monocytes 0.66 10x3/uL (0.0-1.1); #Neutrophils 10.32 10x3/uL (1.5-8.4); %Basophils 0.1 % (0.0-2.0); %Eosinophils 0.2 % (0.0-6.0); %Lymphocytes 11.2 % (18.0-47.0); %Monocytes 5.3 % (0.0-10.0); %Neutrophils 82.9 % (40.0-75.0); Hematocrit 38.2 % (34.9-44.5); Hemoglobin 12.9 g/dL (12.0-15.5); Mean Corpuscular Hemoglobin 28.7 pg (27.0-33.0); Mean Corpuscular Volume 84.9 fL (81.6-98.3); Platelet Count 307 10x3/uL (150-450); Red Blood Cell (RBC) Count 4.50 10x6/uL (3.90-5.03); White Blood Cell (WBC) Count 12.46 10x3/uL (3.5-10.5)
[2025-02-13 17:58] LABS: ALT (SGPT) 17 U/L (Less than 34); AST (SGOT) 14 U/L (11-34); Albumin 3.8 g/dL (3.1-4.5); Alkaline Phosphatase 78 U/L (40-110); Anion Gap 13 mmol/L (10-20); BUN (Urea Nitrogen) 15 mg/dL (7.0-18.7); Bilirubin, Total 0.6 mg/dL (0.3-1.2); CK (CPK) 86 U/L (29-168); Calc. Creatinine Clearance 0 mL/min (70-130); Calcium 8.1 mg/dL (7.8-10.44); Carbon Dioxide 20 mmol/L (22-29); Chloride 112 mmol/L (98-107); Globulin 3.6 g/dL (2.4-3.5); Glucose 99 mg/dL (70-105); Lipase 45 U/L (8-78); Potassium 3.8 mmol/L (3.5-5.1); Sodium 141 mmol/L (136-145)
[2025-02-13 18:01] LABS: Troponin I Less than 0.010 ng/mL (< 0.028)
[2025-02-13] MEDS ORDERED: Acetaminophen 325 MG TAB ONE (18:02)
[2025-02-13 18:22] LABS: BHCG - Serum Negative (NEGATIVE); Pregs Control Background? CLEAR/WHITE (CLR/WHITE); Pregs Control Bar Appear? YES (CONTROL BAR)
[2025-02-13 18:57] LABS: Glucose, Urine (Dipstick) Normal (Negative); Leukocyte 25 (Negative); Protein, Urine (Dipstick) 30 mg/dl (Neg-Trace); Specific Gravity, Urine 1.020 (1.005-1.030)
[2025-02-13 19:22] LABS: CAUTI Indications for Culture Pelvic or flank pain; WBC/HPF 0-3 HPF (0-3)
[2025-02-13 19:23] LABS: Bacteria/HPF 3+ HPF (None Seen); RBC/HPF 0-3 HPF (0-3); Urine Culture Reflex No No
== END 2025-02-13 20:04 ==
LOC: CSHERS 17:05
DX: R10.9 Unspecified abdominal pain (principal); R11.2 Nausea with vomiting, unspecified; T75.89XA Other specified effects of external causes, initial encounter
CPT/HCPCS: 74177; 80053; 81001; 82550; 83690; 84484; 84703; 85025; 93005